=== PATIENT | female | born 1960 | race Asian ===

== ENCOUNTER 2017-12-07 21:26 | Emergency (ER) | payer OTHER | END 2017-12-08 02:09 | disposition home or self-care (01) | LOC: FTE 21:26 | DX: R05 Cough (principal); E11.9 Type 2 diabetes mellitus without complications; Z79.84 Long term (current) use of oral hypoglycemic drugs | CPT/HCPCS: 71045; 99284-25 ==

== ENCOUNTER 2018-03-11 09:10 | Day surgery (SDC) | payer OTHER ==
[2018-03-11] MEDS ORDERED: MIDAZOLAM 1 MG/ML 2 ML INJ (12:03)
[2018-03-11] MEDS ORDERED: FENTAnyl 50 MCG/ML VIAL (12:03)
== END 2018-03-11 13:42 | disposition home or self-care (01) ==
LOC: GIL 09:10
DX: Z12.11 Encounter for screening for malignant neoplasm of colon (principal); D12.0 Benign neoplasm of cecum; K57.90 Diverticulosis of intestine, part unspecified, without perforation or abscess without bleeding; K64.4 Residual hemorrhoidal skin tags; K64.8 Other hemorrhoids; E11.9 Type 2 diabetes mellitus without complications
CPT/HCPCS: 45380; 88305

== ENCOUNTER 2019-01-06 06:59 | Emergency (ER) | payer OTHER ==
[2019-01-06] MEDS: ONDANSETRON 4 MG INJ IV ×2 (07:46→10:26)
[2019-01-06] MEDS: LIDOCAINE/MYLANTA 40 ML BTL PO (07:46)
[2019-01-06] MEDS: SOD CHLORIDE 0.9% 1,000 ML IV (07:46)
[2019-01-06] MEDS: morphine 4 MG/ML VIAL IV (07:46)
[2019-01-06] MEDS: PANTOPRAZOLE 40 MG INJ IV (07:46)
[2019-01-06 07:51] LABS: WHITE BLOOD COUNT 15.5 10^3/ul (4.8-10.8)
[2019-01-06 07:51] LABS: ADD MAN DIFF? NO; BASOPHIL # 0.1 10^3/ul (0.0-0.1); BASOPHILS % 0.4 % (0.0-2.0); EOSINOPHILS % 0.1 % (0.0-7.0); HEMATOCRIT 43.4 % (37.0-47.0); HEMOGLOBIN 13.7 g/dl (12.0-16.0); LYMPHOCYTES # 1.4 10^3/ul (0.8-2.9); LYMPHOCYTES % 9.2 % (15.0-51.0); MEAN CORPUSCULAR HEMOGLOBIN 28.8 pg (29.0-33.0); MEAN CORPUSCULAR HGB CONC 31.6 g/dl (32.0-37.0); MEAN CORPUSCULAR VOLUME 91.4 fl (82.0-101.0); MEAN PLATELET VOLUME 10.2 fl (7.4-10.4); MONOCYTE # 0.6 10^3/ul (0.3-0.9); NEUTROPHIL # 13.3 10^3/ul (1.6-7.5); NEUTROPHILS % 85.7 % (39.0-77.0); PLATELET COUNT 311 10^3/UL (140-415); RED BLOOD COUNT 4.75 10^6/ul (4.20-5.40); RED CELL DISTRIBUTION WIDTH 12.9 % (11.5-14.5)
[2019-01-06 08:07] LABS: URINE BLOOD (Dip) POC 1+ (NEGATIVE); URINE KETONES (Dip) POC Negative (NEGATIVE); URINE LEUKOCYTE EST (Dip) POC Negative (NEGATIVE); URINE NITRITE (Dip) POC Negative (NEGATIVE); URINE TOTAL PROTEIN POC 2+ (NEGATIVE)
[2019-01-06 08:09] LABS: ALANINE AMINOTRANSFERASE 24 IU/L (13-69); ALBUMIN 4.4 g/dl (3.3-4.9); ALBUMIN/GLOBULIN RATIO 1.29; ALKALINE PHOSPHATASE 104 IU/L (42-121); ANION GAP 10 (5-13); ASPARTATE AMINO TRANSFERASE 26 IU/L (15-46); BILIRUBIN,INDIRECT 0.2 mg/dl (0-1.1); BILIRUBIN,TOTAL 0.2 mg/dl (0.2-1.3); BLOOD UREA NITROGEN 11 mg/dl (7-20); CALCIUM 9.5 mg/dl (8.4-10.2); CARBON DIOXIDE 27 mmol/L (21-31); CHLORIDE 104 mmol/L (97-110); CREATININE 0.82 mg/dl (0.44-1.00); Estimated GFR > 60 mL/min (>60); GLUCOSE 239 mg/dl (70-220); LIPASE 53 U/L (23-300); POTASSIUM 3.5 mmol/L (3.5-5.1); SODIUM 141 mmol/L (135-144); TOTAL PROTEIN 7.8 g/dl (6.1-8.1)
[2019-01-06 08:20] LABS: TROPONIN-I < 0.012 ng/ml (0.000-0.120)
[2019-01-06 08:33] LABS: ADD UMIC NO; UR ASCORBIC ACID NEGATIVE (NEGATIVE); UR BILIRUBIN (Dip) NEGATIVE (NEGATIVE); UR BLOOD (Dip) NEGATIVE (NEGATIVE); UR CLARITY CLEAR (CLEAR); UR COLOR COLORLESS (YELLOW); UR GLUCOSE (Dip) 2+ mg/dL (NEGATIVE); UR KETONES (Dip) TRACE mg/dL (NEGATIVE); UR LEUKOCYTE ESTERASE (Dip) NEGATIVE Leu/ul (NEGATIVE); UR NITRITE (Dip) NEGATIVE (NEGATIVE); UR SPECIFIC GRAVITY (Dip) 1.008 (1.003-1.030); UR TOTAL PROTEIN (Dip) NEGATIVE (NEGATIVE); UR UROBILINOGEN (Dip) NEGATIVE (NEGATIVE)
[2019-01-06] MEDS: HYDROmorphONE 2 MG/ML SYG IV (09:14)
[2019-01-06] MEDS: KETOROLAC 30 MG INJ IV (10:26)
== END 2019-01-06 11:08 | disposition home or self-care (01) ==
LOC: E/R 06:59
DX: N20.0 Calculus of kidney (principal); E11.9 Type 2 diabetes mellitus without complications; I10 Essential (primary) hypertension; Z79.4 Long term (current) use of insulin
CPT/HCPCS: 36415; 74176; 76705; 80053; 81003; 83690; 84484; 85025; 93005; 96374; 96375; 96376; 99285-25

== ENCOUNTER 2019-01-07 21:01 | Inpatient (IN) | payer OTHER ==
[2019-01-07] MEDS ORDERED: HYDROCODONE/APAP (5/325) TAB PO ×2 (22:30)
[2019-01-07] MEDS ORDERED: NACL 0.9% 3 ML SYG IV (22:30)
[2019-01-07] MEDS: ACETAMINOPHEN 325 MG TAB PO (22:57)
[2019-01-07] MEDS: SOD CHLORIDE 0.9% 1,000 ML IV (22:58)
[2019-01-07] MEDS ORDERED: GLUCOSE GEL 15 GRAM TUBE BUCCAL (23:30)
[2019-01-07] MEDS ORDERED: GLUCAGON 1 MG INJ IM (23:30)
[2019-01-07] MEDS ORDERED: DEXTROSE 50% 50 ML SYRINGE IV ×2 (23:30)
[2019-01-07] MEDS ORDERED: GLUCOSE GEL 15 GRAM TUBE PO ×2 (23:30)
[2019-01-07] MEDS: INSULIN ASPART [NOVOLOG] 3 ML PEN SC (23:49)
[2019-01-07] MEDS: INSULIN GLARGINE [LANTus] (100 UNITS/ML) SYG SC (23:49)
[2019-01-08 00:22] LABS: LACTIC ACID 1.7 mmol/L (0.5-2.0)
[2019-01-08 01:06] LABS: ADD UMIC YES; UR ASCORBIC ACID NEGATIVE (NEGATIVE); UR BACTERIA FEW /HPF (NONE SEEN); UR BILIRUBIN (Dip) NEGATIVE (NEGATIVE); UR BLOOD (Dip) 2+ mg/dL (NEGATIVE); UR CLARITY CLEAR (CLEAR); UR COLOR STRAW (YELLOW); UR GLUCOSE (Dip) 2+ mg/dL (NEGATIVE); UR KETONES (Dip) 1+ mg/dL (NEGATIVE); UR LEUKOCYTE ESTERASE (Dip) 1+ Leu/ul (NEGATIVE); UR NITRITE (Dip) NEGATIVE (NEGATIVE); UR RBC 9 /HPF (0-5); UR TOTAL PROTEIN (Dip) 1+ mg/dl (NEGATIVE); UR UROBILINOGEN (Dip) NEGATIVE (NEGATIVE); UR WBC 29 /HPF (0-5)
[2019-01-08] MEDS: ACCU-CHEK XX (01:59)
[2019-01-08 05:32] LABS: WHITE BLOOD COUNT 10.4 10^3/ul (4.8-10.8)
[2019-01-08 05:32] LABS: ABNORMAL IP MESSAGE 1; HEMATOCRIT 32.6 % (37.0-47.0); HEMOGLOBIN 10.4 g/dl (12.0-16.0); MEAN CORPUSCULAR HEMOGLOBIN 28.8 pg (29.0-33.0); MEAN CORPUSCULAR HGB CONC 31.9 g/dl (32.0-37.0); MEAN CORPUSCULAR VOLUME 90.3 fl (82.0-101.0); MEAN PLATELET VOLUME 10.5 fl (7.4-10.4); PLATELET COUNT 171 10^3/UL (140-415); RED BLOOD COUNT 3.61 10^6/ul (4.20-5.40); RED CELL DISTRIBUTION WIDTH 13.4 % (11.5-14.5)
[2019-01-08 05:53] LABS: ALANINE AMINOTRANSFERASE 20 IU/L (13-69); ALBUMIN 2.5 g/dl (3.3-4.9); ALBUMIN/GLOBULIN RATIO 1.08; ALKALINE PHOSPHATASE 52 IU/L (42-121); ANION GAP 8 (5-13); ASPARTATE AMINO TRANSFERASE 24 IU/L (15-46); BILIRUBIN,INDIRECT 0.2 mg/dl (0-1.1); BILIRUBIN,TOTAL 0.2 mg/dl (0.2-1.3); BLOOD UREA NITROGEN 15 mg/dl (7-20); CALCIUM 7.7 mg/dl (8.4-10.2); CARBON DIOXIDE 22 mmol/L (21-31); CHLORIDE 110 mmol/L (97-110); CHOL/HDL RATIO 2.3 RATIO; CHOLESTEROL 102 mg/dl (100-200); CREATININE 0.92 mg/dl (0.44-1.00); Estimated GFR > 60 mL/min (>60); GLUCOSE 200 mg/dl (70-220); HDL CHOLESTEROL 44 mg/dl (35-98); LDL CHOLESTEROL,CALCULATED 30 mg/dl; MAGNESIUM 1.8 mg/dl (1.7-2.5); POTASSIUM 3.8 mmol/L (3.5-5.1); SODIUM 140 mmol/L (135-144); TOTAL PROTEIN 4.8 g/dl (6.1-8.1); TRIGLYCERIDES 139 mg/dl (0-149)
[2019-01-08 05:55] LABS: HEMOGLOBIN A1C 6.4 % (0-5.9)
[2019-01-08 06:00] LABS: ADD MAN DIFF? YES; POSITIVE DIFF @See below
[2019-01-08 06:04] LABS: LACTIC ACID 1.4 mmol/L (0.5-2.0)
[2019-01-08] MEDS: ACETAMINOPHEN 325 MG TAB PO ×2 (08:01→17:55)
[2019-01-08 08:08] LABS: ANISOCYTOSIS 1+ (0-0); BAND NEUTROPHILS #M 2.4 10^3/ul (0.0-0.6); BAND NEUTROPHILS % (M) 24 % (0-4); ERYTHROBLAST% (NRBC) (M) 1 % (0-0); LYMPHOCYTES #M 0.3 10^3/ul (0.8-2.9); LYMPHOCYTES % (M) 3 % (15-51); MONOCYTE #M 0.1 10^3/ul (0.3-0.9); MONOCYTES % (M) 1 % (0-11); MYELOCYTES #M 0.1 10^3/ul (0.0-0.0); MYELOCYTES % (M) 1 % (0-0); PLATELET ESTIMATE NORMAL; SEG NEUT #M 7.6 10^3/ul (1.6-7.5); SEGMENTED NEUTROPHILS (M) % 71 % (39-77); SMUDGE%M 38 % (0-0)
[2019-01-08] MEDS: ATENOLOL 25 MG TAB PO (08:14)
[2019-01-08] MEDS: CEFTRIAXONE 1 GM/50 ML (PMX) 50 ML IVPB (08:15)
[2019-01-08] MEDS: SOD CHLORIDE 0.9% 1,000 ML IV ×3 (08:16→17:56)
[2019-01-08] MEDS: INSULIN ASPART [NOVOLOG] 3 ML PEN SC ×8 (08:27→21:00)
[2019-01-08] MEDS ORDERED: VANCOMYCIN IV PER PHARMACY XX (09:00)
[2019-01-08] MEDS: PIPER-TAZO 3.375 GM IV (PMX) 100 ML IVPB ×4 (10:48→23:57)
[2019-01-08] MEDS: VANCOMYCIN HCL 1.25 GM in SOD CHLORIDE 0.9% 250 ML IVPB (12:40)
[2019-01-08] MEDS: ATORVASTATIN 10 MG TAB PO (20:41)
[2019-01-08] MEDS: TAMSULOSIN (SR) 0.4 MG CAP PO (20:41)
[2019-01-08] MEDS: INSULIN GLARGINE [LANTus] (100 UNITS/ML) SYG SC (21:07)
[2019-01-08] MEDS: VANCOMYCIN 750 MG (PMX) 250 ML IVPB (22:54)
[2019-01-09] MEDS: ACCU-CHEK XX (02:00)
[2019-01-09] MEDS: SOD CHLORIDE 0.9% 1,000 ML IV ×2 (02:52→13:14)
[2019-01-09] MEDS: PIPER-TAZO 3.375 GM IV (PMX) 100 ML IVPB ×4 (05:39→23:41)
[2019-01-09] MEDS: INSULIN ASPART [NOVOLOG] 3 ML PEN SC ×7 (08:07→20:39)
[2019-01-09 08:28] LABS: ADD MAN DIFF? NO
[2019-01-09 08:38] LABS: WHITE BLOOD COUNT 7.6 10^3/ul (4.8-10.8)
[2019-01-09 08:38] LABS: BASOPHILS % 0.3 % (0.0-2.0); EOSINOPHILS % 0.3 % (0.0-7.0); HEMATOCRIT 29.9 % (37.0-47.0); HEMOGLOBIN 9.8 g/dl (12.0-16.0); LYMPHOCYTES # 0.6 10^3/ul (0.8-2.9); LYMPHOCYTES % 7.9 % (15.0-51.0); MEAN CORPUSCULAR HEMOGLOBIN 29.4 pg (29.0-33.0); MEAN CORPUSCULAR HGB CONC 32.8 g/dl (32.0-37.0); MEAN CORPUSCULAR VOLUME 89.8 fl (82.0-101.0); MEAN PLATELET VOLUME 10.9 fl (7.4-10.4); MONOCYTE # 0.4 10^3/ul (0.3-0.9); MONOCYTES % 4.7 % (0.0-11.0); NEUTROPHIL # 6.6 10^3/ul (1.6-7.5); NEUTROPHILS % 86.4 % (39.0-77.0); PLATELET COUNT 153 10^3/UL (140-415); RED BLOOD COUNT 3.33 10^6/ul (4.20-5.40); RED CELL DISTRIBUTION WIDTH 13.1 % (11.5-14.5)
[2019-01-09] MEDS: ACETAMINOPHEN 325 MG TAB PO ×3 (08:44→17:05)
[2019-01-09] MEDS: ATENOLOL 25 MG TAB PO (08:44)
[2019-01-09 09:08] LABS: ANION GAP 9 (5-13); BLOOD UREA NITROGEN 11 mg/dl (7-20); CALCIUM 7.6 mg/dl (8.4-10.2); CARBON DIOXIDE 20 mmol/L (21-31); CHLORIDE 108 mmol/L (97-110); CHOL/HDL RATIO 3.1 RATIO; CHOLESTEROL 104 mg/dl (100-200); CREATININE 0.95 mg/dl (0.44-1.00); Estimated GFR > 60 mL/min (>60); GLUCOSE 145 mg/dl (70-220); HDL CHOLESTEROL 33 mg/dl (35-98); LDL CHOLESTEROL,CALCULATED 29 mg/dl; MAGNESIUM 1.8 mg/dl (1.7-2.5); PHOSPHORUS 1.5 mg/dl (2.5-4.9); POTASSIUM 3.3 mmol/L (3.5-5.1); SODIUM 137 mmol/L (135-144); TRIGLYCERIDES 209 mg/dl (0-149)
[2019-01-09] MEDS: VANCOMYCIN 750 MG (PMX) 250 ML IVPB (10:30)
[2019-01-09] MEDS: POTASSIUM CHLORIDE (SR) 20 MEQ TAB PO (11:24)
[2019-01-09] MEDS: POTASSIUM PHOSPHATE 60 MEQ in SOD CHLORIDE 0.9% 250 ML IVPB (13:14)
[2019-01-09] MEDS: ONDANSETRON 4 MG INJ IV (17:05)
[2019-01-09] MEDS: INSULIN GLARGINE [LANTus] (100 UNITS/ML) SYG SC (19:59)
[2019-01-09] MEDS: ATORVASTATIN 10 MG TAB PO (20:39)
[2019-01-09] MEDS: TAMSULOSIN (SR) 0.4 MG CAP PO (20:39)
[2019-01-10] MEDS: ACCU-CHEK XX (01:42)
[2019-01-10] MEDS: PIPER-TAZO 3.375 GM IV (PMX) 100 ML IVPB ×4 (06:19→23:46)
[2019-01-10] MEDS: SOD CHLORIDE 0.9% 1,000 ML IV ×3 (06:20→20:40)
[2019-01-10 07:02] LABS: ADD MAN DIFF? NO
[2019-01-10 07:10] LABS: BASOPHILS % 0.4 % (0.0-2.0); EOSINOPHILS # 0.1 10^3/ul (0.0-0.5); EOSINOPHILS % 1.2 % (0.0-7.0); HEMATOCRIT 34.4 % (37.0-47.0); LYMPHOCYTES # 1.1 10^3/ul (0.8-2.9); LYMPHOCYTES % 14.5 % (15.0-51.0); MEAN CORPUSCULAR HEMOGLOBIN 28.6 pg (29.0-33.0); MEAN CORPUSCULAR VOLUME 89.6 fl (82.0-101.0); MEAN PLATELET VOLUME 10.4 fl (7.4-10.4); MONOCYTE # 0.5 10^3/ul (0.3-0.9); MONOCYTES % 6.3 % (0.0-11.0); NEUTROPHIL # 5.9 10^3/ul (1.6-7.5); NEUTROPHILS % 77.2 % (39.0-77.0); PLATELET COUNT 200 10^3/UL (140-415); RED BLOOD COUNT 3.84 10^6/ul (4.20-5.40); RED CELL DISTRIBUTION WIDTH 13.1 % (11.5-14.5)
[2019-01-10 07:10] LABS: WHITE BLOOD COUNT 7.7 10^3/ul (4.8-10.8)
[2019-01-10 07:26] LABS: POSITIVE DIFF @See below
[2019-01-10 07:31] LABS: ANION GAP 13 (5-13); BLOOD UREA NITROGEN 11 mg/dl (7-20); CALCIUM 8.1 mg/dl (8.4-10.2); CARBON DIOXIDE 23 mmol/L (21-31); CHLORIDE 104 mmol/L (97-110); CREATININE 0.95 mg/dl (0.44-1.00); Estimated GFR > 60 mL/min (>60); GLUCOSE 127 mg/dl (70-220); POTASSIUM 3.6 mmol/L (3.5-5.1); SODIUM 140 mmol/L (135-144)
[2019-01-10 07:35] LABS: PHOSPHORUS 2.6 mg/dl (2.5-4.9)
[2019-01-10 07:35] LABS: MAGNESIUM 1.8 mg/dl (1.7-2.5)
[2019-01-10] MEDS: INSULIN ASPART [NOVOLOG] 3 ML PEN SC ×7 (07:46→21:00)
[2019-01-10] MEDS: ATENOLOL 25 MG TAB PO (08:57)
[2019-01-10] MEDS ORDERED: hydrALAzine 20 MG INJ IV (12:00)
[2019-01-10] MEDS: CEPASTAT LOZENGE MT ×3 (13:35→16:40)
[2019-01-10] MEDS: ALBUTEROL/IPRATROPIUM (NEB) 3 ML AMP HHN (18:53)
[2019-01-10] MEDS ORDERED: ALBUTEROL/IPRATROPIUM (NEB) 3 ML AMP HHN (19:00)
[2019-01-10] MEDS: ATORVASTATIN 10 MG TAB PO (20:40)
[2019-01-10] MEDS: TAMSULOSIN (SR) 0.4 MG CAP PO (20:40)
[2019-01-10] MEDS: INSULIN GLARGINE [LANTus] (100 UNITS/ML) SYG SC (20:48)
[2019-01-11] MEDS: ACCU-CHEK XX (01:40)
[2019-01-11] MEDS: PIPER-TAZO 3.375 GM IV (PMX) 100 ML IVPB ×2 (05:29→11:12)
[2019-01-11] MEDS: SOD CHLORIDE 0.9% 1,000 ML IV ×2 (06:28→11:13)
[2019-01-11 06:53] LABS: ADD MAN DIFF? NO
[2019-01-11 06:58] LABS: BASOPHILS % 0.6 % (0.0-2.0); EOSINOPHILS # 0.2 10^3/ul (0.0-0.5); EOSINOPHILS % 2.6 % (0.0-7.0); HEMOGLOBIN 11.2 g/dl (12.0-16.0); LYMPHOCYTES # 1.2 10^3/ul (0.8-2.9); LYMPHOCYTES % 17.6 % (15.0-51.0); MEAN CORPUSCULAR HEMOGLOBIN 28.6 pg (29.0-33.0); MEAN CORPUSCULAR HGB CONC 32.9 g/dl (32.0-37.0); MEAN CORPUSCULAR VOLUME 86.7 fl (82.0-101.0); MEAN PLATELET VOLUME 10.2 fl (7.4-10.4); MONOCYTE # 0.6 10^3/ul (0.3-0.9); MONOCYTES % 8.5 % (0.0-11.0); NEUTROPHIL # 4.9 10^3/ul (1.6-7.5); NEUTROPHILS % 70.3 % (39.0-77.0); PLATELET COUNT 236 10^3/UL (140-415); RED BLOOD COUNT 3.92 10^6/ul (4.20-5.40); RED CELL DISTRIBUTION WIDTH 12.9 % (11.5-14.5)
[2019-01-11 07:22] LABS: ANION GAP 11 (5-13); BLOOD UREA NITROGEN 9 mg/dl (7-20); CALCIUM 8.5 mg/dl (8.4-10.2); CARBON DIOXIDE 23 mmol/L (21-31); CHLORIDE 106 mmol/L (97-110); CREATININE 0.89 mg/dl (0.44-1.00); Estimated GFR > 60 mL/min (>60); GLUCOSE 132 mg/dl (70-220); POTASSIUM 3.4 mmol/L (3.5-5.1); SODIUM 140 mmol/L (135-144)
[2019-01-11] MEDS: INSULIN ASPART [NOVOLOG] 3 ML PEN SC ×4 (07:51→11:48)
[2019-01-11] MEDS: ATENOLOL 25 MG TAB PO (08:08)
[2019-01-11] MEDS ORDERED: ALBUTEROL/IPRATROPIUM (NEB) 3 ML AMP HHN (13:20)
[2019-01-11] MEDS: GUAIFENESIN 20 MG/ML 5ML CUP PO (13:59)
[2019-01-11] MEDS: CEPASTAT LOZENGE MT (14:00)
[2019-01-11] MEDS: POTASSIUM CHLORIDE (SR) 20 MEQ TAB PO (14:00)
== END 2019-01-11 16:10 | disposition home or self-care (01) | DRG 872 ==
LOC: TEL 21:01
PROVIDERS: Internal Medicine
DX: A41.9 Sepsis, unspecified organism (principal); N13.6 Pyonephrosis; E11.9 Type 2 diabetes mellitus without complications; I10 Essential (primary) hypertension; Z79.4 Long term (current) use of insulin
CPT/HCPCS: 71045; 74018; 76856; 80048; 80053; 80061; 81001; 82962; 83036; 83605; 83735; 84100; 85025; 87040-91; 87081; 87086; 94640; 94664

== ENCOUNTER 2019-03-14 22:33 | Emergency (ER) | payer OTHER | END 2019-03-15 01:07 | disposition home or self-care (01) | LOC: FTE 22:33 | DX: L02.412 Cutaneous abscess of left axilla (principal); I10 Essential (primary) hypertension; Z79.4 Long term (current) use of insulin | CPT/HCPCS: 99283; Z7502 ==

== ENCOUNTER 2019-03-17 07:54 | Emergency (ER) | payer OTHER | END 2019-03-17 08:51 | disposition home or self-care (01) | LOC: FTE 07:54 | DX: L02.414 Cutaneous abscess of left upper limb (principal); L73.2 Hidradenitis suppurativa; I10 Essential (primary) hypertension; Z79.4 Long term (current) use of insulin; Z48.01 Encounter for change or removal of surgical wound dressing | CPT/HCPCS: 99281; Z7502 ==